=== PATIENT | male | born 1965 | race African-American/Black ===

== ENCOUNTER → 2019-09-17 | Outpatient (CLI) | payer OTHER ==
--- NOTE | 2019-09-17 14:35 | EKG ---
[facility] [address] [place] [address] Test Date: 2019-09-17 Test Time: 14:31:21 Pat Name: VERONICA SHEEHAN Department: Room: Gender: M Certified Nursing Assistant Instructor: AMY : 1965 Requested By: ACE SMILEY Order Number: [id number] Reading MD: Xander Reese MD Measurements Intervals [place] Rate: 68 P: 65 GA: 192 QRS: 100 QRSD: 94 T: 33 QT: 372 QTc: 396 Interpretive Statements SINUS RHYTHM Electronically Signed On 09-17-2019 16:20:06 TICKET SORTER by Xander Reese MD
[2019-09-17 15:11] LABS: BASO % 1 % (0-3); EOS # 0.2 x10^3/uL (0.0-0.7); EOS % 4 % (0-3); HEMATOCRIT 41.5 % (39.0-53.0); HEMOGLOBIN 12.9 g/dL (13.0-17.5); LYMPH # 1.9 x10^3/uL (1.0-4.8); LYMPH % 35 % (24-48); MEAN CORPUSCULAR HEMOGLOBIN 23 pg (25-35); MEAN CORPUSCULAR HGB CONC 31 g/dL (31-37); MEAN CORPUSCULAR VOLUME 74 fL (79-100); MONO # 0.6 x10^3/uL (0.0-1.1); MONO % 11 % (0-9); NEUT # 2.7 x10^3/uL (1.8-7.7); NEUT % 49 % (31-73); PLATELET COUNT 405 x10^3/uL (140-400); RED BLOOD COUNT 5.63 x10^6/uL (4.30-5.70); RED CELL DISTRIBUTION WIDTH 15.9 % (11.5-14.5); WHITE BLOOD COUNT 5.5 x10^3/uL (4.0-11.0)
[2019-09-17 15:28] LABS: ALBUMIN 4.1 g/dL (3.4-5.0); ALBUMIN/GLOBULIN RATIO 1.1 (1.0-1.7); CALCIUM 9.1 mg/dL (8.5-10.1); CREATININE 1.1 mg/dL (0.7-1.3); GFR 84.1; TOTAL BILIRUBIN 0.2 mg/dL (0.2-1.0); TOTAL PROTEIN 7.7 g/dL (6.4-8.2)
--- NOTE | 2019-09-17 15:38 | RAD ---
EXAM: Chest, 2 views. HISTORY: Pain. Preoperative evaluation. COMPARISON: None. FINDINGS: 2 views of chest are obtained. There is no infiltrate, pleural effusion or pneumothorax. The heart is normal in size. IMPRESSION: No acute pulmonary finding. Electronically signed by: Isabel Espinosa MD (09/17/2019 3:35 PM) [place] [id number]
== END | disposition home or self-care (01) ==
LOC: RAD 14:10
PROVIDERS: ATTEND Orthopaedic Surgery
DX: Z01.818 Encounter for other preprocedural examination (principal); M75.101 Unspecified rotator cuff tear or rupture of right shoulder, not specified as traumatic
CPT/HCPCS: 36415; 71046; 80053; 85025; 93005